=== PATIENT | male | born 1995 | race Caucasian/White ===

== ENCOUNTER 2018-09-29 09:46 | Emergency (ER) | payer MEDICAID ==
[~2018-09-29] VITALS: Ht 167.6 cm; Wt 72.0 kg
[2018-09-29 09:53] VITALS: BP 133/89; PULSE 74; RESP 20; Ht 167.6 cm; Wt 72.0 kg
[2018-09-29] MEDS ORDERED: AMOX1TAB10 PO (10:30)
[2018-09-29] MEDS ORDERED: ACET325T33 PO (10:30)
[2018-09-29] MEDS ORDERED: IBUP800T48 PO (10:30)
--- NOTE | 2018-09-29 10:46 | ERD ---
ER Documentation Chief Complaint Chief Complaint Complains of a fever with sore throat x 3 days HPI 22-year-old male presenting with sore throat and fever. Patient has had symptoms for the last 3 days. Denies a cough or runny nose. Patient is also complaining of some pain to his left toe after he twisted his toenail and bent it backwards. Denies medical problems. NKDA. Surgical history denies. Social history denies ROS All systems reviewed and are negative except as per history of present illness. Medications Home Meds Active Scripts Acetaminophen* (Tylenol*) 325 Mg Tablet, 2 TAB PO Q6 PRN for PAIN AND OR ELEVATED TEMP, #20 TAB Prov:ALIVIA PACK PA-C 09/29/18 Ibuprofen* (Motrin*) 800 Mg Tab, 800 MG PO Q6, #30 TAB Prov:ALIVIA PACK PA-C 09/29/18 Amoxicillin/Potassium Clav (Amox-Clav 875-125 mg Tablet) 875-125 mg Tab, 1 TAB P O BID for 7 Days, #14 TAB Prov:ALIVIA PACK PA-C 09/29/18 PMhx/Soc Medical and Surgical Hx: pt denies Medical Hx, pt denies Surgical Hx Hx Alcohol Use: No Hx Substance Use: No Hx Tobacco Use: No Smoking Status: Never smoker FmHx Family History: No diabetes, No coronary disease, No other Physical Exam Vitals Vital Signs Date Temp Pulse Resp B/P (MAP) Pulse Ox O2 O2 Flow FiO2 Time Delivery Rate 09/29/18 98.8 74 20 133/89 20 09:53 (104) Physical Exam GENERAL: The patient is well-appearing, well-nourished, in no acute distress HEENT: Atraumatic. Conjunctivae are pink. Pupils equal, round, and reactive to light. There is no scleral icterus. Tympanic membranes clear bilaterally. Oropharynx erythematous with enlargement of the tonsils. Uvula midline.. No nystagmus or photophobia. NECK: C-spine is soft and supple. There is no meningismus. There is no cervical lymphadenopathy. CHEST: Clear to auscultation bilaterally. There are no rales, wheezes or rhonchi. HEART: Regular rate and rhythm. No murmurs, clicks, rubs or gallops. Procedures/MDM MDM: 22-year-old male presenting with sore throat. Patient be treated for bacterial infection. I have low suspicion for peritonsillar retropharyngeal abscess. It was suspicion for meningitis or sepsis. Patient is discharged with stricter precautions and told to follow-up with primary care within 1-2 days for close evaluation. All questions answered at discharge Departure Diagnosis: Primary Impression: Sore throat Additional Impression: Fever Condition: Stable Patient Instructions: Self-Care for Sore Throats, Fever Control (Adult) Referrals: [facility] YOU HAVE RECEIVED A MEDICAL SCREENING EXAM AND THE RESULTS INDICATE THAT YOU DO NOT HAVE A CONDITION THAT REQUIRES URGENT TREATMENT IN THE EMERGENCY DEPARTMENT. FURTHER EVALUATION AND TREATMENT OF YOUR CONDITION CAN WAIT UNTIL YOU ARE SEEN IN YOUR DOCTORS OFFICE WITHIN THE NEXT 1-2 DAYS. IT IS YOUR RESPONSIBILITY TO MAKE AN APPOINTMENT FOR FOLOW-UP CARE. IF YOU HAVE A PRIMARY DOCTOR --you should call your primary doctor and schedule an appointment IF YOU DO NOT HAVE A PRIMARY DOCTOR YOU CAN CALL OUR PHYSICIAN REFERRAL HOTLINE AT IF YOU CAN NOT AFFORD TO SEE A PHYSICIAN YOU CAN CHOSE FROM THE FOLLOWING [facility] [address]. [facility] [address] [facility]. [facility] [address] [facility] [facility] [address] [facility]. [facility] [address] [facility]. [facility]. [address] [place] Additional Instructions: FOLLOW UP WITH YOUR PRIMARY CARE PHYSICIAN TOMORROW.Return to this facility if you are not improving as expected. ALIVIA PACK PA-C Sep 29, 2018 10:46
== END 2018-09-29 10:48 | disposition home or self-care (01) ==
LOC: FTE 09:46
DX: J02.9 Acute pharyngitis, unspecified (principal)
CPT/HCPCS: 99283